=== PATIENT | male | born 1955 | race Caucasian/White ===

== ENCOUNTER → 2017-05-22 | Outpatient (CLI) | payer BC ==
[2017-05-22 13:32] LABS: ESTIMATED AVERAGE GLUCOSE 140 mg/dl; HA1C FLAG Normal (Normal)
[2017-05-22 13:36] LABS: RATIO 10.8 mcg/mg (0-30.0)
[2017-05-22 13:41] LABS: ALT/SGPT 44 U/L (12-78); BLOOD UREA NITROGEN 16 mg/dl (7-18); BUN/CREATININE RATIO 16.3 (10-20); CALCIUM 8.3 mg/dl (8.5-10.1); CARBON DIOXIDE 29 mmol/L (21-32); CHLORIDE 105 mmol/L (98-107); CHOLESTEROL 142 mg/dl (0-200); CREATININE 0.95 mg/dl (0.60-1.40); GLUCOSE 132 mg/dl (70-99); SODIUM 138 mmol/L (136-145); TRIGLYCERIDES 107 mg/dl (0-150); URIC ACID 7.6 mg/dl (2.6-7.2); VERY LOW DENSITY LIPOPROT CALC 21 mg/dl
[2017-05-22 13:46] LABS: ALKALINE PHOSPHATASE 87 U/L (45-117); AST/SGOT 32 U/L (15-37); CHOLESTEROL/HDL RATIO 3.8; HDL CHOLESTEROL 37 mg/dl; LDL CHOLESTEROL CALCULATED 84 mg/dl
== END | disposition home or self-care (01) ==
LOC: C.LABMFLN 09:16
PROVIDERS: ATTEND Family Medicine
DX: M10.9 Gout, unspecified (principal); E11.9 Type 2 diabetes mellitus without complications; Z12.5 Encounter for screening for malignant neoplasm of prostate

== ENCOUNTER → 2017-11-28 | Outpatient (CLI) | payer BC ==
[2017-11-29 06:50] LABS: HEMOGLOBIN A1C 10.3 % (4.5-5.6)
== END | disposition home or self-care (01) ==
LOC: C.LABMFLN 16:38
PROVIDERS: ATTEND Family Medicine
DX: M10.9 Gout, unspecified (principal); E11.40 Type 2 diabetes mellitus with diabetic neuropathy, unspecified

== ENCOUNTER → 2018-03-24 | Outpatient (CLI) | payer BC ==
[2018-03-24 19:18] LABS: GLUCOSE 166 mg/dl (70-99)
[2018-03-24 19:22] LABS: ALBUMIN 3.8 gm/dl (3.4-5.0); ALKALINE PHOSPHATASE 97 U/L (45-117); ALT/SGPT 53 U/L (12-78); AST/SGOT 38 U/L (15-37); BLOOD UREA NITROGEN 12 mg/dl (7-18); CALCIUM 8.5 mg/dl (8.5-10.1); CARBON DIOXIDE 27 mmol/L (21-32); CHOLESTEROL 130 mg/dl (0-200); CREATININE 0.99 mg/dl (0.60-1.40); POTASSIUM 3.8 mmol/L (3.5-5.1); SODIUM 139 mmol/L (136-145); TOTAL PROTEIN 7.4 gm/dl (6.4-8.2)
[2018-03-25 06:29] LABS: HEMOGLOBIN A1C 7.2 % (4.5-5.6)
== END | disposition home or self-care (01) ==
LOC: C.LABMFLN 15:17
PROVIDERS: ATTEND Family Medicine
DX: E11.65 Type 2 diabetes mellitus with hyperglycemia (principal); E11.40 Type 2 diabetes mellitus with diabetic neuropathy, unspecified; M79.1 Myalgia

== ENCOUNTER 2023-12-19 05:49 | Observation (INO) ==
--- NOTE | 2023-12-10 08:51 | Anesthesiology Consultation ---
Date of Service December 10, 2023 Assessment & Plan (1) Encounter for pre-operative examination: Plan - awaiting [place] PCP response to workload note. - check BSG am DOS. - PCP ER f/u visit 11/06/23 [place]: "...doing fairly well until yesterday when he was having more knee pain. He got diaphoretic and lightheaded...pressure in his chest. He went to [facility] emergency room where he was ruled out for acute cardiac syndrome. Is pulse ox was well-controlled. Electrolytes significant for a sodium of 133. Liver function tests were normal. White blood cells were slightly increased at 11.6. Hemoglobin was slightly low at 11.2. Troponins, liver tests, pancreas tests were normal. Chest x-ray and EKG were unchanged. Patient was discharged to home...For the feeling of near passing out and lower abdominal pain that took you to the emergency room yesterday it sounds as though it was a vasovagal episode. We will check for other causes..." Urine culture was ordered: no growth. - ER visit 11/05/23 [facility]: "...presents for evaluation of abdominal pain...was sitting in waiting room of his PCP clinic when he began having epigastric abdominal pain radiating to his lower abdominal [sic]...went to the bathroom and attempted to have a bowel movement...began having shortness of breath...EMS was called...initially upon being placed in the ambulance and oxygen being administered, symptoms significantly improved...currently states he is completely pain free, symptom free, back to baseline...EKG without findings of arrhythmia. 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 Chart Review Chart Review: Pending: Refer to Additional Notes / Consult section and Patient NOT seen in Pre Admission Testing History Surgery Operation Date: 12/19/23 09:00 Proposed Procedures p Robotic Assisted Laparoscopic Radical Retropubic Prostatectomy, Possible Open, Possible Pelvic Lymph Node Dissection - Tank Atkinson, DO Height/Weight Height: 5 ft 11 in Weight: 106.594 kg Allergies Allergy/AdvReac Type Severity Reaction Status Date / Time shrimp Allergy Severe "seafood/shrimp" Verified 12/03/23 08:59 -- Lip swelling morphine AdvReac Intermediate Headache Verified 12/03/23 08:59 Medications Home Medications Medication Instructions Recorded Confirmed Last Taken diabetic supplies, miscellan. #100 ea 05/31/20 10/09/23 Unknown blood sugar diagnostic (OneTouch #100 ea 06/06/20 10/09/23 Unknown Verio test strips) cyclobenzaprine 10 mg tablet 10 mg PO BID PRN muscle spasm #30 08/19/20 12/03/23 08/15/22 tabs omeprazole 20 mg capsule,delayed 20 mg PO DAILY PRN gerd 07/03/22 12/03/23 04/15/23 release multivitamin 1 tab PO QAM 09/27/23 12/03/23 10/28/23 23:00 oxycodone 5 mg tablet 5 - 10 mg (1 - 2 x 5 mg) PO 10/31/23 12/03/23 Unknown .Q4h-6h PRN pain #30 tabs acetaminophen 500 mg tablet 1,000 mg PO Q8 PRN Pain 12/03/23 12/03/23 Unknown (Tylenol Extra Strength) metformin 500 mg tablet,extended 500 mg PO UD 12/03/23 12/03/23 Unknown release 24 hr Past Medical History Medical History DM type 2 (diabetes mellitus, type 2) NIDDM GERD (gastroesophageal reflux disease) controlled, stable per pt History of back pain History of bladder stone (~07/2022) cystolithopaxy History of gout last flare several yrs ago History of kidney stones (~10/2022) HLD (hyperlipidemia) no meds Hx of colonic polyps Postoperative anemia Prostate cancer (08/14/23) Past Family History Family History Father No problems noted. Mother No problems noted. Son No problems noted. Son No problems noted. Brother Prostate cancer, Onset Age: 62 no treatment Brother No problems noted. Sister No problems noted. Sister No problems noted. Daughter No problems noted. Daughter No problems noted. Other No family history of adverse response to anesthesia No pertinent family history Past Surgical History Surgical History H/O metal removed from eye History of back surgery L3,4,5 decompression History of bilateral carpal tunnel release History of cystoscopy (~10/2022) stent placement left History of lithotripsy (~10/2022) History of placement of ear tubes History of prostate biopsy Dr. 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 Social History Smoking Status: Former smoker tobacco type: cigarettes Smoking cigarettes per day: 1-2 cigs/day Do You Dip or Chew Tobacco: No Smoking End Date: 1972 Hx Alcohol Use: No Hx Substance Use: No substance use type: does not use Lab Results Anesthesia Preop Results Results Anesthesia Widget: WBC 8.54 K/ul (4.8-10.8) 12/05/23 Hgb 13.3 g/dl (14.0-18.0) L 12/05/23 Hct 39.6 % (42.0-52.0) L 12/05/23 Plt 136 K/uL (130-400) 12/05/23 Na 139 mmol/L (136-145) 12/05/23 K 4.3 mmol/L (3.5-5.1) 12/05/23 Cl 105 mmol/L (98-107) 12/05/23 CO2 27 mmol/L (21-32) 12/05/23 BUN 17 mg/dl (6-23) 12/05/23 Creat 0.98 mg/dl (0.6-1.4) 12/05/23 Glucose Level 139 mg/dl (70-99(Fasting)) H 12/05/23 POC Glucose 179 mg/dl (70-99) H 10/31/23 Urine WBC (Auto) 1-5 /hpf (0-5) 11/06/23 Urine RBC (Auto) 5-10 /hpf (0-4) H 11/06/23 Urine Hyaline Casts (Auto) 1-5 /lpf (0-5) 11/06/23 Urine Epithelial Cells (Auto) 0-5 /lpf (0-5) 11/06/23 Urine Bacteria (Auto) Negative (Negative) 11/06/23 Testing Electrocardiogram Date: 11/05/23 NSR, rate 72 bpm Chest X-Ray Date: 11/05/23 No acute findings. Other Testing Bone scan 09/03/23 1. No convincing evidence for skeletal metastatic disease. 2. Small focus of mild uptake projecting over the right aspect of the sternum. This is indeterminate although not overtly suspicious. If clinically indicated, a chest CT could be obtained for further evaluation.
[2023-12-19] MEDS: LACTATED RINGER'S 1,000 ML IV SCH ×2 (06:49→13:14)
[2023-12-19] MEDS: HEPARIN SOD 5,000 UNIT/0.5 ML VIAL ONE (06:49)
[2023-12-19] MEDS: ceFAZolin 2,000 MG/15 ML IV PUSH IV ONE (06:49)
--- NOTE | 2023-12-19 06:54 | History & Physical Bridge Note ---
Date of Service December 19, 2023 History & Physical Bridge Note I have examined the patient, reviewed the History & Physical and in the interval since the performance of the History & Physical I have noted the following changes of clinical significance: no changes noted
[2023-12-19] MEDS ORDERED: PROPOFOL IV EMULSION 10 MG/ML 20 ML VIAL IV ONE ×4 (07:00→10:52)
[2023-12-19] MEDS ORDERED: ROCURONIUM BROMIDE 10 MG/ML 5 ML VIAL IV ONE ×3 (07:00→09:22)
[2023-12-19] MEDS ORDERED: LIDOCAINE 2% 2 ML VIAL/AMP(20MG/ML) INFIL ONE (07:00)
[2023-12-19] MEDS ORDERED: ONDANSETRON INJ 2 MG/ML 2 ML VIAL ONE (07:00)
[2023-12-19] MEDS ORDERED: DEXAMETHASONE SOD INJ 4 MG/ML VIAL ONE (07:00)
[2023-12-19] MEDS ORDERED: MIDAZOLAM HCL 1 MG/ML 2ML VIAL ONE (07:01)
[2023-12-19] MEDS ORDERED: fentaNYL citrate PF 100 MCG/2 ML VIAL ONE ×2 (07:01→08:10)
[2023-12-19] MEDS ORDERED: SUGAMMADEX SODIUM 200 MG/2 ML VIAL IV ONE ×2 (07:09→11:00)
[2023-12-19] MEDS ORDERED: ONDANSETRON INJ 2 MG/ML 2 ML VIAL IV PRN ×2 (07:12→12:58)
[2023-12-19] MEDS ORDERED: ATROPINE SULFATE 0.1 MG/ML 10ML SYR IV PRN (07:12)
[2023-12-19] MEDS ORDERED: fentaNYL citrate PF 100 MCG/2 ML VIAL IV PRN (07:12)
[2023-12-19] MEDS ORDERED: ePHEDrine sulfate 50 MG/ML AMP IV PRN (07:12)
[2023-12-19] MEDS ORDERED: ACETAMINOPHEN 1000 MG/100 ML IV IV ONE (07:13)
[2023-12-19] MEDS: ceFAZolin 2000MG 2,000 MG/15 ML SYR IV SCH ×2 (07:27→16:51)
[2023-12-19] MEDS ORDERED: hydrALAZINE HCL 20 MG/ML VIAL ONE (08:14)
[2023-12-19] MEDS ORDERED: HYDROmorphone INJ 2 MG/ML SYR/VIAL ONE (10:38)
[2023-12-19] MEDS: FLOSEAL HEMOSTATIC MATRIX 10ML TOP ONE (11:13)
[2023-12-19] MEDS: BUPIVACAINE 0.5 % 5 MG/1 ML MPF 30ML VIAL ONE (11:13)
[2023-12-19] MEDS: SURGICEL ABSORB HEMOSTAT 2IN X 14IN TOP ONE (11:14)
--- NOTE | 2023-12-19 11:24 | Operative Report ---
PG Post Operative Report Pre & Post Diagnosis Operation Date: 12/19/23 07:30 Pre-Op Diagnosis: Prostate Cancer Post-Op Diagnosis: Prostate Cancer I identified the patient and participated in the time-out.: Yes Procedure Operation Date: 12/19/23 07:30 Actual Procedures p Robotic Assisted Laparoscopic Radical Retropubic Prostatectomy, Pelvic Lymph Node Dissection, Extensive lysis of adhesions - Tank Atkinson, Surgeon Tank Atkinson, II, DO [employer] VIDAL Rogers Estimated Blood Loss 100 Findings Consistent with Post-Op Diagnosis Significant adhesions of the sigmoid colon to the lateral wall and pelvis. Specimens Prostate and Seminal Vesicle Left Pelvic Lymph Nodes Right Pelvic Lymph Nodes. Drains 18 Silicon Caballero catheter. Anesthesia Type General Complications none Disposition Disposition: Recovery Room Indications Patient with Prostate Cancer. Risk and benefits were discussed at length. Patient elected to undergo robotic assisted laparoscopic Radical Prostatectomy. Description of Procedure The patient was brought to the operative suite and placed under general endotr acheal intubation anesthesia in the supine position. The patient was transferred to the dorsal lithotomy position. At this point, the patient prepped and draped in the usual sterile fashion and a timeout was completed. Preoperative antibiotics of Ancef 2 grams had been given. RODY's and SCD's were placed on the patient's lower extremities. A catheter was placed using sterile technique. With the time out completed the patient was placed into Trendelenburg and the skin at the umbilicus was anesthetized. A small incision was made superior to the umbilicus. A Varess Needle was placed and confirmed to be in the abdominal cavity. Water drop test passed. The Abdominal cavity was insufflated to 15 mmHG. The camera port was then placed. A laparoscopic camera was placed into the port and the abdominal cavity inspected. No concerning features were noted. At this point, the skin was marked for port placement and 8mm working ports were placed. The skin was anesthetized down to fascia and an approx 1cm incision was made to place the 3 x 8mm ports. A 12mm and 5 mm engineer second assistant ports were also placed in similar fashion under direct visualization. The patient was transferred into steep Trendelenburg position and the legs lowered. The robot was positioned and docked. The camera was placed and all trocars were positioned under direct visualization. VIDAL Ferreira was integral in port placement, camera utilization, and docking procedure. She remained in sterile attire and then proceeded to assist the remainder of the case. At this point, I transitioned to the robotic console. At this point, the sigmoid colon was mobilized superiorly and the pelvis assessed. Adhesions were freed to allow mobilization. Extensive adhesions were noted especially going down into the pelvis. Patient had bilateral inguinal hernias as well that appeared to only have fat contained in the hernia. No bowel was noted. Approx 25 additional minutes for lysis of adhesions. The peritoneum in the midline was opened between rectum and bladder and the vas deferens and seminal vesicles exposed. These were dissected with blunt technique. The vas was clipped and cut and mobilized. Cautery was used to assist dissection avoiding the tissue posteriorly near the rectum. The tissues lateral to the seminal vesicles were clipped with a hemolock and all bleeding controlled. This was taken as inferior as possible from this position. The medial umbilical ligaments were then identified and the peritoneum directly lateral on the right followed by the left was opened. The tissues were bluntly dissected to free the bladder's lateral attachments. This was taken down to the pubic bone and exposed the endopelvic fascia bilaterally. The medial ligaments were cut and the bladder dropped. The tissues was dissected anterior to the prostate. The endopelvic fascia on each side was then opened and the lateral edges of the prostate dissected. The Dorsal venous complex of the prostate was dissected and assessed. A 2-0 PDS suture was used to ligate the vessels. A suspension stitch was used and clipped. Electrocautery was used to cut the anterior attachments, the puboprostatic ligaments, and venous tissues. The caballero was manipulated to better visual the bladder neck and dissection was taken using electrocautery. The bladder neck was opened and dissected from the prostate. The UO were identifed and dissection taken in a direction to avoid each side. The vas stump and seminal vesicles were exposed and used to assist in traction to dissect. The prostatic pedicles were better exposed. The posterior prostate was dissected. An attempt was made to limit cautery and utilize cold dissection of the lateral posterior prostate to attempt preservation of the neurovascular bundle bilaterally. Hemolock clips were utilized to clip the prostatic pedicle bilaterally. The dissection was taken to the apex of the prostate. The anterior prostate was released and the urethra exposed. Cold cutting was used to open the anterior portion and expose the catheter. This was removed and the urethra incised. The prostate was further freed and grasped and removed from the field. The entire dissection bed was inspected.Hemostatic agent was placed in the region. No areas of injury or bleeding was noted. Care was taken to examine the perirectal tissues. A probe was placed and no injuries or other issues were observed. The bladder neck and urethra were then approximated with a running barbed suture starting at the 5 o'clock position and moving to the 12 o'clock on each side. The pelvis was deep and this limited mobility but closure went well otherwise. This was secured at the anterior portion. A leak test was completed without any evidence of issues. The right and left pelvic lymph tissue was identified in relation to the iliac vessels. Distal dissection was taken to the Node of Imani. Inferiorly the obtorator vessels and nerve were identified. Lymphatic tissue within the surround fat tissue was dissected. This packet of tissues were sent for pathologic analysis and lymph node assessment. This was done for each separate side. Hemostatic agent was placed on the exposed vessels. The entire dissection space was inspected one final time. No bleeding or injuries or areas of concern were noted. No tumor or other concerning features were noted. At this point, the robot was undocked and moved away from the patient. The patient was taken out of Trendelenberg. The port sites were all assessed laparoscopically. The endoscopic bag was moved into the midline port. The 12 mm port site was closed with the Harsha Beckman device. The other ports were assessed and no issues observed. The umbilical incision was opened further exposing fascia which was then opened in order to removed the prostate in the bag. The prostate was removed. A running 1-0 PDS suture was used to close fascia. The skin at each site was closed with a stapling device. The area was cleaned and bandages placed on each incision. The patient was cleaned and bandaged, aroused from anesthesia, and transferred to the pacu in stable condition having tolerated the procedure well with no complications. I was present and participated in all aspects of the procedure. Jhon DRAKE was critical in the portions as mentioned above. Will plan to observe postoperatively and monitor. Caballero to be remain in place until followup. I attest to the content of the Intraoperative Record and any orders documented therein. Any exceptions are noted below.
[2023-12-19 12:05] LABS: Hemoglobin 12.6 g/dl (14.0-18.0); Mean Corpuscular Hemoglobin 29.9 pg (25.0-34.0); Mean Corpuscular Hgb Conc 32.3 g/dL (32.0-36.0); Mean Corpuscular Volume 92.4 fL (80.0-100.0); Mean Platelet Volume 10.4 fL (9.4-12.4); Platelet Count 151 K/uL (130-400); RDW Coefficient of Variation 12.4 % (11.5-14.5); RDW Standard Deviation 42.2 fL (36.4-46.3); Red Blood Count 4.22 M/uL (4.70-6.10)
--- NOTE | 2023-12-19 12:09 | Anesthesiology Progress Note ---
Date of Service December 19, 2023 Anesthesia Post Procedure Vital Signs Vital Signs: Temp Pulse Pulse Resp BP Pulse Ox O2 Del Method 12/19/23 12:00 97 H 14 151/71 H 96 Room Air 12/19/23 11:50 97 H 20 138/71 96 Oxymask 12/19/23 11:40 95 H 18 142/74 H 97 Oxymask 12/19/23 11:30 98.4 F 95 H 14 138/72 97 Oxymask 12/19/23 06:18 97.7 F 81 18 172/92 H 95 Room Air O2 Flow Rate 12/19/23 12:00 12/19/23 11:50 6 12/19/23 11:40 8 12/19/23 11:30 8 12/19/23 06:18 Transfer of Care Handoff Completed per policy Notes Mental Status: alert / awake / arousable and participated in evaluation Patient Amnestic to Procedure: Yes Nausea / Vomiting: adequately controlled Pain: adequately controlled Airway Patency, RR, SpO2: stable & adequate BP & HR: stable & adequate Hydration State: stable & adequate Anesthetic Complications: no major complications apparent and Pt Satisfied with anesthetic care
[2023-12-19 12:21] LABS: BUN Creatinine Ratio 14.4 (10-20); Basophils # (auto) 0.05 K/uL (0.00-0.20); Basophils % (auto) 0.2 %; Calcium 8.6 mg/dl (8.6-10.3); Creatinine Clr Calc Pharmacy 73.9 ml/min; Eosinophils # (auto) 0.01 K/uL (0.00-0.50); Est GFR (African American) 73.6 ml/min; Est GFR (Non-African American) 63.5 ml/min; Immature Granulocytes # (auto) 0.12 K/uL (0.01-0.20); Immature Granulocytes % (auto) 0.6 %; Lymphocytes # (auto) 0.74 K/uL (1.20-3.40); Lymphocytes % (auto) 3.7 %; Monocytes # (auto) 0.44 K/uL (0.11-0.59); Monocytes % (auto) 2.2 %; Neutrophils # (auto) 18.74 K/uL (1.40-6.50); Neutrophils % (auto) 93.3 %; Potassium 4.7 mmol/L (3.5-5.1)
[2023-12-19] MEDS ORDERED: HYDROmorphone INJ 0.5 MG/0.5 ML SYR IV PRN (12:58)
[2023-12-19] MEDS ORDERED: oxyCODONE HCL IR 5 MG TAB (IMMEDIATE RELEASE) PO PRN (12:58)
[2023-12-19] MEDS ORDERED: ACETAMINOPHEN 325 MG TAB PO PRN (12:58)
[2023-12-19] MEDS ORDERED: PHARMACY GLYCEMIC MGMT CONSULT PRN (12:58)
[2023-12-19] MEDS ORDERED: PANTOprazole 40 MG TAB PO PRN (13:00)
[2023-12-19] MEDS: HEPARIN SOD 5,000 UNIT/0.5 ML VIAL SC SCH (13:04)
[2023-12-19] MEDS ORDERED: CARBOHYDRATES FOR HYPOGLYCEMIA PO PRN (13:30)
[2023-12-19] MEDS ORDERED: GLUCOSE 10 TAB/TUBE PO PRN (13:30)
[2023-12-19] MEDS ORDERED: GLUCAGON FOR INJ 1 MG VIAL IM PRN (13:30)
[2023-12-19] MEDS ORDERED: GLUCOSE 40% GEL 15 GM TUBE PO PRN (13:30)
[2023-12-19] MEDS ORDERED: DEXTROSE 50% 50 ML SYRINGE IV PRN (13:30)
--- NOTE | 2023-12-19 13:42 | Pharmacy Report ---
Pharmacy Glycemic Short Note 2 - Date of Service December 19, 2023 - Glycemic Short BSG Results (Last 24 hours): 12/19/23 12/19/23 12/19/23 06:10 11:36 11:39 Glucose POC Glucose 157 H 254 H 221 H 12/19/23 11:51 Glucose 255 H POC Glucose OUTPATIENT ANTIDIABETIC REGIMEN: * Metformin ER 1000 mg with breakfast, 500 mg with dinner HbA1c: 8% ASSESSMENT: * 68 y/o M admitted for Lap Prostatectomy. Patient has history of Type 2 diabetes managed only on oral Metformin at home. * He received IV Dexamethasone 4 mg in OR this morning. This caused increased BSG above 200 mg/dl at lunch. * Basal Lantus x1 dose ordered now based on stress of 2. Also Novolog started now, parameters based on stress of 2. * Expect BSGs to trend down this evening. * Will re-assess basal insulin tomorrow. PLAN FOR INPATIENT GLYCEMIC CONTROL: * Hold outpatient oral diabetes medications * Basal insulin * Lantus 18 units SQ x1 @13:30 * Bolus insulin * NovoLog per scale ACHS or Q6hrs while NPO * Goal Range: Low 110 mg/dL - High 140 mg/dL * Correction Factor: 25 mg/dL/unit * Nutritional / Prandial insulin per carb ratio of 1 unit per 8 grams CHO consumed
[2023-12-19] MEDS: INSULIN ASPART PER UNIT CHARGE SC SCH (14:35)
[2023-12-19] MEDS: LANTUS PER UNIT CHARGE SC SCH (14:36)
[2023-12-19] MEDS: DOCUSATE SODIUM 100 MG CAP PO SCH (20:30)
[2023-12-19] MEDS: HEPARIN SOD 5,000 UNIT/0.5 ML VIAL SQ SCH (20:31)
[2023-12-20 06:56] LABS: Basophils # (auto) 0.01 K/uL (0.00-0.20); Basophils % (auto) 0.1 %; Hematocrit (blood only) 36.6 % (42.0-52.0); Hemoglobin 11.7 g/dl (14.0-18.0); Immature Granulocytes # (auto) 0.04 K/uL (0.01-0.20); Immature Granulocytes % (auto) 0.3 %; Lymphocytes # (auto) 1.57 K/uL (1.20-3.40); Lymphocytes % (auto) 12.2 %; Mean Corpuscular Hemoglobin 29.5 pg (25.0-34.0); Mean Corpuscular Volume 92.4 fL (80.0-100.0); Mean Platelet Volume 10.9 fL (9.4-12.4); Monocytes # (auto) 0.75 K/uL (0.11-0.59); Monocytes % (auto) 5.9 %; Neutrophils # (auto) 10.45 K/uL (1.40-6.50); Neutrophils % (auto) 81.5 %; Platelet Count 130 K/uL (130-400); RDW Coefficient of Variation 12.4 % (11.5-14.5); RDW Standard Deviation 42.5 fL (36.4-46.3); Red Blood Count 3.96 M/uL (4.70-6.10); White Blood Count 12.82 K/ul (4.8-10.8)
[2023-12-20 07:20] LABS: BUN Creatinine Ratio 14.1 (10-20); Calcium 8.5 mg/dl (8.6-10.3); Est GFR (Non-African American) 78.5 ml/min; Potassium 4.2 mmol/L (3.5-5.1)
[2023-12-20] MEDS: LANTUS PER UNIT CHARGE SC SCH (08:50)
[2023-12-20] MEDS: oxyCODONE HCL IR 5 MG TAB (IMMEDIATE RELEASE) PO PRN (08:51)
--- NOTE | 2023-12-20 11:17 | Urology Progress Note ---
Date of Service December 20, 2023 Assessment & Plan (1) Prostate cancer: Plan POD #1 s/p robotic prostatectomy with Dr. Atkinson. Recovering appropriately. Remains afebrile and hemodynamically stable. Labs today reviewedWBC 12.82, hemoglobin 11.7, creatinine 0.99. Sanchez intact and draining appropriatelyurine is clear yellow. Plan- Maintain Sanchez catheter. Advance diet. D/C IV fluids. Encourage ambulation. Continue pain management as needed. Will reassess around lunch, anticipate discharge home later today with Sanchez catheter. Admission and Anticipated Discharge Date Admission Date: December 19, 2023 Subjective Pt examined at bedside this AM. Awake, sitting in bedside chair on arrival. No acute distress. Denies fever, chills, nausea, vomiting. Sanchez intact and draining clear yellow urine. Reports minimal pain, managing with p.o. medication. Tolerating clear liquid diet. Ambulated without issue. Incisions appropriate. +Flatus. Review of Systems Constitutional: as per Subjective / HPI Gastrointestinal: as per Subjective / HPI Genitourinary: + as per Subjective / HPI Physical Exam Constitutional: well developed and well nourished; no acute distress Respiratory: normal respiratory effort; no respiratory distress and no labored breathing Gastrointestinal (Abdomen): Percussion/Palpation: abdomen soft; abdomen nontender Incisions appropriate, abhishek and gauze dressing intact. Musculoskeletal: Head/Neck/Chest: normocephalic Skin: No visible rashes or lesions to exposed skin areas Neurologic: moves all extremities and awake Psychiatric: A+Ox3, euthymic affect Genitourinary: Sanchez catheter intact and draining clear yellow urine Results & Data Vital Signs (Past 12 Hours) Vital Signs Temp Pulse Pulse Resp BP Pulse Ox O2 Del Method 12/20/23 07:00 36.8 C 79 16 154/74 H 94 Room Air 12/20/23 04:33 36.9 C 86 18 164/80 H 94 Room Air 12/19/23 23:17 37 C 85 18 148/79 H 94 Room Air PG Care Time/CCT Total # of Minutes Spent Total Time Spent with Patient: Total time spent is greater than 50% in coordination of care (as documented) at patient's floor/unit and/or counseling patient: Coding Level of Care Code None Diagnoses Prostate cancer C61
--- NOTE | 2023-12-20 13:03 | Pharmacy Report ---
Pharmacy Glycemic Short Note 2 - Date of Service December 20, 2023 - Glycemic Short BSG Results (Last 24 hours): 12/19/23 12/19/23 12/19/23 13:36 17:00 20:37 Glucose POC Glucose 237 H 234 H 151 H 12/20/23 12/20/23 12/20/23 06:25 07:34 11:34 Glucose 151 H POC Glucose 125 H 189 H OUTPATIENT ANTIDIABETIC REGIMEN: * Metformin ER 1000 mg with breakfast, 500 mg with dinner HbA1c: 8% ASSESSMENT: 12/19: * Patient received total 37 units of insulin yesterday: 18 units basal and 19 units bolus. * BSGs yesterday were [id number] mg/dl. Fasting BSG today was 125 mg/dl. * Steroids are not continued. * Basal dose reduced to 10 units (stress of 1) in the morning. Novolog carb ratio loosened slightly. 12/18: * 68 y/o M admitted for Lap Prostatectomy. Patient has history of Type 2 diabetes managed only on oral Metformin at home. * He received IV Dexamethasone 4 mg in OR this morning. This caused increased BSG above 200 mg/dl at lunch. * Basal Lantus x1 dose ordered now based on stress of 2. Also Novolog started now, parameters based on stress of 2. * Expect BSGs to trend down this evening. * Will re-assess basal insulin tomorrow. PLAN FOR INPATIENT GLYCEMIC CONTROL: * Hold outpatient oral diabetes medications * Basal insulin * Lantus 10 units SC QAM * Bolus insulin * NovoLog per scale ACHS or Q6hrs while NPO * Goal Range: Low 110 mg/dL - High 140 mg/dL * Correction Factor: 25 mg/dL/unit * Nutritional / Prandial insulin per carb ratio of 1 unit per 9 grams CHO consumed
--- NOTE | 2023-12-20 13:24 | Discharge Summary ---
Date of Service December 20, 2023 Admission HPI Per Admitting Provider 68-year-old male with prostate cancer admitted for robotic prostatectomy Admission Exam Per Admitting Provider General: Alert in no acute distress. HEENT: Inspection normal Psychologic: Normal affect. Respiratory: Nonlabored. No use of accessory muscles. Skin: [place] and Dry. No rashes or visible lesions. Principal Diagnosis Prostate cancer Discharge Exam Constitutional well developed and well nourished; no acute distress Respiratory normal respiratory effort; no respiratory distress and no labored breathing Gastrointestinal (Abdomen) Percussion/Palpation: abdomen soft; abdomen nontender Incisions appropriate, abhishek and gauze dressing intact. Musculoskeletal Head/Neck/Chest: normocephalic Neurologic moves all extremities and awake Psychiatric A+Ox3, euthymic affect Genitourinary Sanchez intact and draining clear yellow urine Discharge Data Allergies Allergy/AdvReac Type Severity Reaction Status Date / Time shrimp Allergy Severe "seafood/shrimp" Verified 12/19/23 06:16 -- Lip swelling morphine AdvReac Intermediate Headache Verified 12/19/23 06:16 Procedures Performed Operation Date: 12/19/23 07:30 Actual Procedures p Robotic Assisted Laparoscopic Radical Retropubic Prostatectomy, Pelvic Lymph Node Dissection(Not Applicable) - Tank Atkinson, Hospital Course (1) Prostate cancer: Plan 68-year-old male with prostate cancer admitted for robotic prostatectomy with Dr. Atkinson. Patient tolerated procedure well. No acute issues postoperatively. He remained afebrile and hemodynamically stable. Labs reviewedWBC 12.82, hemoglobin 11.7, creatinine 0.99. Sanchez intact and draining appropriatelyurine clear yellow. Patient tolerated diet. Ambulated without issue. Reported minimal pain. He was discharged home on postop day #1 with a Sanchez catheter in place. He was in stable condition at time of discharge. Discharge instructions were reviewed, all questions were answered. Appropriate postoperative follow-up appointment in place. Total Time Total Time Spent Total Time Spent (In Minutes): 15 Discharge Plan Discharge Items Patient Disposition: Home - Self-Care Reason For Visit: Prostate Cancer Discharge Diagnosis: Prostate cancer Activity: Per Instructions section Lifting: No more than 25 pounds Bathing Comment: Okay to shower. No tub baths or soaks. Sexual Activity: Wait until after follow-up appointment Exercise/Sports: Wait until after follow-up appointment Driving/Machine Use: Do not drive if taking prescription pain medication. Non-emergency contact: Surgeon and Urologist Call non-emergency contact if: you have any medication questions, your symptoms worsen, your pain is not controlled, you have a fever, your wound has increased redness, your wound has increased drainage and your wound pain has increased Follow-up/Referrals: Markell Ordonez MD [Primary Care Provider] - None Tank Atkinson DO [Physician] - 12/27/23 8:30 am Diet: Carb Consistent or DM2 Addtl Attending Provider Instructions: Please take all medications as prescribed and keep all follow-ups as scheduled. Please call our office at [phone] with any questions, concerns or need to reschedule appointments for any reason. We are happy to assist you We have sent an antibiotic to your pharmacy of choice. Please begin antibiotic the day before your scheduled catheter removal. Continue as prescribed until complete. Activity: We recommend having someone with you for the first few days after surgery to help care for you. For the first 2 weeks after surgery, we would like you to get up and walk around your house. However, we recommend limit physical activity that would increase your heart rate. This will allow your body to rest and heal. Take naps if you feel tired. Don't lift anything heavier than 25 pounds, mow the law or ride a bicycle until your follow-up appointment. Please avoid long car rides. Home Care: Unless directed otherwise, drink 6 to 8 glasses of water a day (enough to keep your urine light colored). This will also help keep a healthy flow of urine. We recommend using a stool softener for the first two weeks to avoid constipation. Sanchez Catheter or Suprapubic Catheter care: Keep the catheter well secured with either a leg back or leg strap with large bag. Empty your bag when it's about half full. You may notice some blood in the bag. This is normal after surgery and while the catheter is in place. Use mild soap (such as Dove or Dial) and water to wash the catheter and the head of your penis daily, or more frequently if needed. Return to your normal diet, we encourage good protein intake to promote healing. You may shower as normal. Please avoid tub baths or soaking until catheter removed and incisions well healed. Wearing sweat pants while you have the catheter is recommended, they will be more comfortable. Follow-up Your follow up appointments for having your catheter removed, and follow up with your physician should already be scheduled. If you have any questions regarding this, please contact our office. Your final pathology report will be discussed at your physician follow-up appointment. Call [facility] at [phone] right away if you have any of the following: Chest pain or trouble breathing (call 911 or go to the hospital) Fever of 101F or higher, uncontrolled vomiting Heavy bleeding, clots, or bright red blood from the catheter Catheter that falls out or stops draining Foul-smelling discharge from your catheter Redness, swelling, warmth, or increased pain at your incision site Drainage, pus, or bleeding from your incision Pending Studies at Discharge: Yes (Pathology) Stand-Alone Forms: [facility], Sm[facility] Cess[facility] Medications and DC Order Prescriptions: New ciprofloxacin HCl 500 mg tablet 500 mg PO BID 3 Days Qty: 6 0RF Rx Instructions: Start 1 day prior to catheter removal Continued (DME) OneTouch Verio test strips Strip See Rx Instructions .ROUTE .MEDSUPPLY Qty: 100 3RF Rx Instructions: As directed-daily dx 411.9 cyclobenzaprine 10 mg tablet 10 mg PO BID PRN (Reason: muscle spasm) Qty: 30 1RF (DME) diabetic supplies, miscellan. Misc See Rx Instructions .ROUTE .MEDSUPPLY Qty: 100 3RF Rx Instructions: test strips. check daily as directed. Dx 411.9 omeprazole 20 mg capsule,delayed release(DR/EC) 20 mg PO DAILY PRN (Reason: gerd) Rx Instructions: for reflux multivitamin Tablet,Chewable 1 tab PO QAM oxycodone 5 mg Tablet 5 - 10 mg PO .Q4h-6h MDD 6 PRN (Reason: pain) Qty: 30 0RF Rx Instructions: Ongoing therapy, Dr. Ahumada supervising acetaminophen [Tylenol Extra Strength] 500 mg tablet 1,000 mg PO Q8 PRN (Reason: Pain) metformin 500 mg tablet extended release 24 hr 1,000 mg PO UD Rx Instructions: 500 mg orally 2 with breakfast and 1 with supper; for diabetes Discharge Orders: Discharge Order (Routine); Ordered 12/20/23 Ordered By: Dominga Ferreira Admission Data Admit Date/Time: 12/19/23 11:41 Attending Provider: Tank Atkinson Admit Provider: Tank Atkinson Primary Care Provider: Markell Ordonez Other Interventions: Discharge Summary Assessment (RN) Last Done: 12/20/23 12:57 Coding Level of Care Code 13954 IN/OBS DISCH 30 MIN/LESS Diagnoses Prostate cancer C61
== END 2023-12-20 14:02 | disposition home or self-care (01) ==
LOC: ASU 05:49 → 3N 11:41 → INTOOBSV 11:41